=== PATIENT | female | born 1990 | race Caucasian/White ===

== ENCOUNTER 2018-12-26 07:46 | Day surgery (SDC) | payer BC ==
[~2018-12-26 07:46] MED LIST: EPINEPHrine 1 MG/ML SDV ONE; Lactated Ringers 1,000 ML IV SCH; Lidocaine 1%/Sod Bicarbonate in NS 8.4% 1 ML Syringe IDERM PRN; Ropivacaine 0.5% 5 MG/ML 30 ML SDV ONE; Sodium Chloride 0.9% 10 ML Syringe FLUSH PRN
[2018-12-26] MEDS ORDERED: Midazolam 1 MG/ML 2 ML SDV ONE (08:21)
[2018-12-26] MEDS ORDERED: Lidocaine 1% 2 ML ONE (08:21)
[2018-12-26] MEDS ORDERED: fentaNYL 100 MCG/2 ML SDV ONE (08:22)
--- NOTE | 2018-12-26 08:25 | PCM.PREANE ---
Preanesthetic Assessment - Anesthesia/Transfusion/Family Hx Anesthesia History: Prior Anesthesia Without Reaction Family History of Anesthesia Reaction: No - Review of Systems General: No Symptoms Pulmonary: No Symptoms Cardiovascular: No Symptoms Gastrointestinal: No Symptoms Neurological: No Symptoms Other: Reports: None - Physical Assessment NPO Status Date: 12/25/18 NPO Status Time: 20:30 Pulse: 68 O2 Sat by Pulse Oximetry: 100 Respiratory Rate: 16 Blood Pressure: 117/71 Temperature: 36.2 C Weight: 73.482 kg ASA Class: 1 Mental Status: Alert & Oriented x3 Airway Class: Mallampati = 1 Dentition: Reports: Normal Dentition Thyro-Mental Finger Breadths: 3 Mouth Opening Finger Breadths: 3 ROM/Head Extension: Full Lungs: Clear to Auscultation, Normal Respiratory Effort Cardiovascular: Regular Rate, Regular Rhythm - Lab Values: Laboratory Last Values MRSA (PCR) Negative 12/25/18 12:02 - Allergies Allergies/Adverse Reactions: Allergies Allergy/AdvReac Type Severity Reaction Status Date / Time penicillin V Allergy Hives Verified 12/25/18 14:53 shellfish derived Allergy Anaphylactic Verified 12/25/18 14:53 Shock - Acknowledgements Anesthesia Type Planned: General Anesthesia, Regional Block (Interscalene Nerve Block ) Pt an Appropriate Candidate for the Planned Anesthesia: Yes Alternatives and Risks of Anesthesia Discussed w Pt/Guardian: Yes Pt/Guardian Understands and Agrees with Anesthesia Plan: Yes PreAnesthesia Questionnaire HEENT History: Reports: Other (See Below) Other HEENT History: PHARYNGITIS, SORE THROAT, WEARS GLASSES Cardiovascular History: Reports: None Respiratory History: Reports: Other (See Below) Other Respiratory History: COUGH Gastrointestinal History: Reports: None Genitourinary History: Reports: None PROFESSOR OF CRIMINAL JUSTICE History: Reports: None Musculoskeletal History: Reports: None Neurological History: Reports: None Psychiatric History: Reports: None Endocrine/Metabolic History: Reports: None Hematologic History: Reports: None Immunologic History: Reports: None Oncologic (Cancer) History: Reports: None Dermatologic History: Reports: None - Past Surgical History Head Surgeries/Procedures: Reports: None Cardiovascular Surgical History: Reports: None Respiratory Surgical History: Reports: None GI Surgical History: Reports: None Female Surgical History: Reports: None Male Surgical History: Reports: None Endocrine Surgical History: Reports: None Neurological Surgical History: Reports: None Musculoskeletal Surgical History: Reports: Other (See Below) Other Musculoskeletal Surgeries/Procedures:: FOOT SURGERY, SHOULDER SURGERY Oncologic Surgical History: Reports: None Dermatological Surgical History: Reports: None - SUBSTANCE USE Recreational Drug Use History: No - HOME MEDS Home Medications: Home Meds Clobetasol Propionate [Temovate Cream] 1 dose TOP TID PRN 12/25/18 [History] EPINEPHrine [Epipen] 1 dose IM ASDIRECTED PRN 12/25/18 [History] medroxyPROGESTERone Acetate [Depo-Provera] 1 dose IM Q3M 12/25/18 [History] Acetaminophen/HYDROcodone [[place] 325-5 MG] 1 - 2 tab PO Q6H PRN #40 tablet 12/26 [Rx] Cyclobenzaprine [Flexeril] 10 mg PO Q8H PRN #40 tab 12/26/18 [Rx] - CURRENT (IN HOUSE) MEDS Current Meds: Current Medications Epinephrine HCl (Adrenalin) 3 mg .XX ONETIME ONE Stop: 12/26/18 09:01 Lactated Ringer's (Ringers, Lactated) 1,000 mls @ 125 mls/hr IV ASDIRECTED KEYON Stop: 12/26/18 18:00 Lidocaine/Sodium Bicarbonate (Buffered Lidocaine 1% In Ns 8.4%) 0.25 ml IDERM ONETIME PRN PRN Reason: Prior to IV Start Stop: 12/26/18 18:00 Sodium Chloride (Saline Flush) 10 ml FLUSH ASDIRECTED PRN PRN Reason: Keep Vein Open Stop: 12/26/18 18:00 Discontinued Medications Epinephrine HCl (Adrenalin) Confirm Administered Dose 1 mg .ROUTE .STK-MED ONE Stop: 12/26/18 07:32 Ropivacaine (Naropin 0.5%) Confirm Administered Dose 30 ml .ROUTE .STK-MED ONE Stop: 12/26/18 07:32
[2018-12-26] MEDS ORDERED: Bupivacaine 0.25% 30 ML SDV ONE (08:28)
[2018-12-26] MEDS ORDERED: Ondansetron 4 MG/2 ML SDV ONE (08:57)
[2018-12-26] MEDS ORDERED: Rocuronium 50 MG/5 ML Vial ONE (08:57)
[2018-12-26] MEDS ORDERED: Lidocaine 1% 4 ML ONE (08:58)
[2018-12-26] MEDS ORDERED: Propofol 200 MG/20 ML SDV ONE (08:58)
[2018-12-26] MEDS ORDERED: EPINEPHrine 1 MG/ML 30 ML MDV ONE (09:00)
[2018-12-26] MEDS ORDERED: ceFAZolin 1 GM Vial ONE (09:03)
--- NOTE | 2018-12-26 09:17 | PCM.SN ---
- Free Text/Narrative Note: Date: 12/26/18 Time out:826 Start time:826 End time:[address] left interscalene block with ultrasound guidance and nerve stimulator for post op pain control per Dr. Vazquez and patient. Preop diagnosis left shoulder pain. Procedure is left shoulder arthrosocpy Informed consent obtained. Monitors and O2 placed at 2 l per n/c. Versed 2 mg and Fentanyl 100 mcg given IV total. Patient awake and talking during procedure. Left neck and clavicle area prepped with chlorprep. Sterile gloves, hat and mask worn. US probe with sterile sleeve placed midclavicular with ID of brachial plexus and subclavian artery. Brachial plexus followed cephalad to level of cricoid. Lidocaine 1% local anesthetic injected prior to block placement. 22 g 2 inch stimplex needle advanced with US guidance to brachial plexus. Positive forearm response at .4mA with nerve stimulator. Ceased with saline injection. Ropivacaine 0.5% with epi 1:200,000 injected in increments of 5 ml with negative aspiration before each injection to a total of 30 ml. Good spread of local anesthetic seen on US. Patient tolerated procedure well. Vitals stable with no complaints. Wan Lefor LEAD NUCLEAR MEDICINE TECHNOLOGIST
[2018-12-26] MEDS ORDERED: Lactated Ringers 1,000 ML ONE (09:46)
[2018-12-26] MEDS ORDERED: fentaNYL 100 MCG/2 ML SDV IVPUSH PRN (11:34)
--- NOTE | 2018-12-26 11:38 | PCM.POSTAN ---
POST ANESTHESIA ASSESSMENT - MENTAL STATUS Mental Status: Alert, Oriented - VITAL SIGNS Pulse Rate: 92 SaO2: 97 Resp Rate: 12 Blood Pressure: 106/62 Temperature: 36.8 C - RESPIRATORY Respiratory Status: Respiratory Rate WNL, Airway Patent, O2 Saturation Stable, Supplemental Oxygen - CARDIOVASCULAR CV Status: Pulse Rate WNL, Blood Pressure Stable - GASTROINTESTINAL GI Status: No Symptoms - PAIN Pain Score: 0 - POST OP HYDRATION Hydration Status: Adequate & Stable - OBSERVATIONS Free Text/Narrative:: no anesthesia complications noted
[2018-12-26] MEDS ORDERED: Ketorolac 30 MG/ML SDV IVPUSH PRN (11:39)
--- NOTE | 2018-12-31 14:43 | PCM.OPNOTE ---
- General Post-Op/Procedure Note Date of Surgery/Procedure: 12/26/18 Operative Procedure(s): left shoulder vidoe arthroscopy with biceps tenodesis, anterior labral repair and extentensive debridement Pre Op Diagnosis: left shoulder SLAP tear Post-Op Diagnosis: same with anterior labral tear and extensive synovitis Anesthesia Technique: General ET Tube, Regional Block Primary Surgeon: Wellington Vazquez Anesthesia Provider: Wan Quinonez Cotton Washer: Jackelyn Modi EBSandy in mLs: 5 Complications: None Condition: Good
--- NOTE | 2018-12-31 15:24 | OR ---
DATE OF OPERATION: 12/26/2018 SURGEON: Wellington Vazquez MD OPERATIVE PROCEDURE: Left shoulder video arthroscopy with biceps tenodesis, anterior labral repair, and extensive debridement. PREOPERATIVE DIAGNOSIS: Left shoulder SLAP tear. POSTOPERATIVE DIAGNOSIS: Left shoulder SLAP tear with anterior labral tear and extensive synovitis. ANESTHESIA TECHNIQUE: General endotracheal intubation with regional interscalene block. ANESTHESIA PROVIDER: Shimon Couch. HIGH SCHOOL BUSINESS TEACHER: Jackelyn Modi PA-C. ESTIMATED BLOOD LOSS: 5 mL. COMPLICATIONS: None. CONDITION: Stable. DESCRIPTION OF PROCEDURE: The patient was identified in the preop holding area. Proper site was marked and identified by the surgeon. The patient was taken back to the operating theater, where after adequate anesthesia, the patient was placed in the right lateral decubitus position. A wedge was placed posteriorly. The patient was secured to the table. At this time, the left upper extremity was sterilely prepped and draped in usual sterile fashion. OR time-out was performed. The patient received appropriate antibiotics since she had a penicillin allergy. At this time, 12 pounds traction was applied to left upper extremity. A standard posterior incision was then made. Scope trocar was introduced to glenohumeral joint. The patient was noted to have significant scar tissue. The previous sutures were noted to be scarred into the anterior capsule. The complete anterior labrum was peeled back. The patient did have a small area grade 2 chondromalacia of the glenoid. There was no chondromalacia of the humeral head. The patient had signs of possible previous Hill-Sachs type lesion on the posterior aspect of the humerus, but there was no engaging Hill-Sachs. Undersurface of the rotator cuff was otherwise intact. The patient did have severe synovitis noted at the bicipital groove and did have significant type 2 SLAP tear of the superior labrum. At this time, an anterior portal was created for outside-in technique. Significant synovectomy was then performed with an extensive debridement including of the anterior synovitis. At this time, it was decided that the anterior portion of the SLAP tear as well as the anterior labrum was going to be need to be secured as it did show significant instability and peel back. First, biceps tenodesis performed. A spinal needle was used for passage of a #2 FiberWire through the rotator interval, and then a tenotomy was performed at the superior labrum. At this time, two 2.9 mm Arthrex PushLock anchors were then placed to secure the anterior labrum both the mid portion of the glenoid as well as near the superior border, near the superior labrum. At this time, she was found to have adequate confucianist of the bumper effect of the anterior labrum as well as no instability noted at anterior or the superior labrum. At this time, attention was turned to the subacromial space. The patient was noted to have significant amount of scar tissue noted from previous arthroscopies in the subacromial space. A significant synovectomy and bursectomy were then performed in the subacromial space. Rotator cuff was otherwise intact and there was no signs of rotator cuff tear. The limbs of the suture for the biceps tenodesis were identified in the rotator interval and these were tied in the rotator interval for soft tissue tenodesis. There was no other pathology. Adequate saline was irrigated through the wound. A 3-0 nylon suture was used for closure of the portal incisions. The patient was placed in a sterile soft dressing, a pillow sling, and sent to PACU in stable condition. OPERATION PERFORMED: ANESTHESIA: [facility] /[id number]
== END 2018-12-26 13:00 | disposition home or self-care (01) ==
LOC: JD.SDS 07:46
PROVIDERS: ATTEND Orthopaedic Surgery
DX: S43.432A Superior glenoid labrum lesion of left shoulder, initial encounter (principal); M65.812 Other synovitis and tenosynovitis, left shoulder; G89.18 Other acute postprocedural pain; M94.212 Chondromalacia, left shoulder; X58.XXXA Exposure to other specified factors, initial encounter; Z88.0 Allergy status to penicillin; Z91.013 Allergy to seafood; Z79.899 Other long term (current) drug therapy
CPT/HCPCS: 29806; 29828; 64415; 81025; 87641; C1713; J0171; J0690; J1885; J2001; J2250; J2405; J2704; J2795; J3010; J7120; 01630; J3490

== ENCOUNTER 2021-10-24 16:12 | Inpatient (IN) | payer BC ==
[~2021-10-24 16:12] MED LIST changes: +Bupivacaine 0.25% 10 ML SDV ONE; -EPINEPHrine 1 MG/ML SDV ONE; -Lactated Ringers 1,000 ML IV SCH; -Lidocaine 1%/Sod Bicarbonate in NS 8.4% 1 ML Syringe IDERM PRN; -Ropivacaine 0.5% 5 MG/ML 30 ML SDV ONE; -Sodium Chloride 0.9% 10 ML Syringe FLUSH PRN
[2021-10-24] MEDS ORDERED: Sodium Chloride 0.9% 10 ML Syringe FLUSH PRN (18:45)
[2021-10-24] MEDS ORDERED: Acetaminophen 325 MG Tab PO PRN (18:45)
[2021-10-24] MEDS ORDERED: Nalbuphine 10 MG/1 ML Vial IVPUSH PRN (18:45)
[2021-10-24] MEDS ORDERED: Oxytocin/Lactated Ringers 10 UNIT/1,000 ML BAG IV SCH ×2 (18:45→22:45)
[2021-10-24] MEDS ORDERED: ceFAZolin 2 GM in Sodium Chloride 0.9% 50 ML IV ONE (18:45)
[2021-10-24] MEDS: Lactated Ringers 1,000 ML IV SCH ×2 (19:17→21:06)
[2021-10-24] MEDS ORDERED: fentaNYL 100 MCG/2 ML SDV EPIDUR PRN (19:50)
[2021-10-24] MEDS ORDERED: Bupivacaine/fentaNYL/NS 100 ML Bag EPIDUR PRN (19:50)
[2021-10-24] MEDS ORDERED: ePHEDrine 50 MG/ML SDV IVPUSH PRN (19:50)
[2021-10-24] MEDS ORDERED: diphenhydrAMINE 50 MG/ML SDV IVPUSH PRN (19:50)
[2021-10-24] MEDS ORDERED: Sodium Chloride 0.9% 10 ML Syringe FLUSH SCH (21:00)
[2021-10-24] MEDS ORDERED: ceFAZolin 1 GM in Sodium Chloride 0.9% 100 ML IV SCH (23:30)
[2021-10-25] MEDS ORDERED: ceFAZolin 1 GM in Sodium Chloride 0.9% 100 ML IV SCH ×2 (02:00→03:00)
[2021-10-25] MEDS ORDERED: Ondansetron 4 MG/2 ML SDV IVPUSH ONE (02:39)
[2021-10-25] MEDS ORDERED: Benzocaine/Menthol 20%-0.5% Spray 78 GM Cannister TOP PRN (06:36)
[2021-10-25] MEDS ORDERED: Oxytocin/Lactated Ringers 10 UNIT/1,000 ML BAG IV SCH (06:36)
[2021-10-25] MEDS ORDERED: Acetaminophen 325 MG Tab PO PRN (06:36)
[2021-10-25] MEDS ORDERED: Hydrocortisone Acetate 25 MG Supp RECTAL PRN (06:36)
[2021-10-25] MEDS: Witch Hazel Medicated Pads 40/Jar TOP PRN (07:25)
[2021-10-25] MEDS: Prenatal Multivitamin with Calcium/Folic Acid/Iron Tab PO SCH (09:07)
[2021-10-25] MEDS: Ibuprofen 600 MG Tab PO PRN ×2 (09:07→15:57)
[2021-10-26] MEDS: Ibuprofen 600 MG Tab PO PRN ×2 (07:56→19:47)
[2021-10-26] MEDS: Prenatal Multivitamin with Calcium/Folic Acid/Iron Tab PO SCH (07:59)
[2021-10-26] MEDS: Witch Hazel Medicated Pads 40/Jar TOP PRN (09:33)
[2021-10-26] MEDS ORDERED: Docusate Sodium 100 MG Cap PO PRN (19:47)
[2021-10-26] MEDS ORDERED: Docusate Sodium 100 MG Cap PO SCH (21:00)
[2021-10-27] MEDS: Prenatal Multivitamin with Calcium/Folic Acid/Iron Tab PO SCH (10:44)
== END 2021-10-27 10:35 | disposition home or self-care (01) | DRG 560 ==
LOC: JD.OB 16:12 → OBSVTOIN 18:41 → JD.OB 18:41
PROVIDERS: ADMIT Obstetrics & Gynecology; ATTEND Obstetrics & Gynecology
PROC: 10E0XZZ Delivery of Products of Conception, External Approach (ICD-10-PCS; principal; 2021-10-24)
PROC: 0KQM0ZZ Repair Perineum Muscle, Open Approach (ICD-10-PCS; 2021-10-24)
PROC: 3E0R3BZ Introduction of Anesthetic Agent into Spinal Canal, Percutaneous Approach (ICD-10-PCS; 2021-10-24)
PROC: 10907ZC Drainage of Amniotic Fluid, Therapeutic from Products of Conception, Via Natural or Artificial Opening (ICD-10-PCS; 2021-10-24)
DX: O99.824 Streptococcus B carrier state complicating childbirth (principal); Z3A.40 40 weeks gestation of pregnancy; Z37.0 Single live birth; O77.0 Labor and delivery complicated by meconium in amniotic fluid; O48.0 Post-term pregnancy
CPT/HCPCS: 01967; 36415; 51701; 51702; 59025; 59409; 84112; 85025; 86592; A9270-GY; J0690; J2300; J2405; J2590; J3010; J3490; J7120

== ENCOUNTER 2022-08-21 13:59 | Emergency (ER) | payer BC | END 2022-08-21 17:10 | disposition home or self-care (01) | LOC: JD.ED 13:59 | DX: O22.23 Superficial thrombophlebitis in pregnancy, third trimester (principal); I80.02 Phlebitis and thrombophlebitis of superficial vessels of left lower extremity; Z88.0 Allergy status to penicillin; Z91.013 Allergy to seafood; Z86.16 Personal history of COVID-19; Z3A.34 34 weeks gestation of pregnancy | CPT/HCPCS: 93971-26-LT; 93971-LT; 99283 ==

== ENCOUNTER 2022-09-23 07:04 | Inpatient (IN) | payer BC ==
[2022-09-23] MEDS ORDERED: Nalbuphine 10 MG/0.5 ML Syringe IVPUSH PRN (07:12)
[2022-09-23] MEDS ORDERED: Sodium Chloride 0.9% 10 ML Syringe FLUSH PRN (07:12)
[2022-09-23] MEDS ORDERED: ceFAZolin 2 GM in Sodium Chloride 0.9% 50 ML IV ONE ×2 (07:12→08:15)
[2022-09-23] MEDS ORDERED: Ondansetron 4 MG/2 ML SDV IVPUSH PRN (07:12)
[2022-09-23] MEDS ORDERED: Oxytocin/Lactated Ringers 10 UNIT/1,000 ML BAG IV SCH ×2 (07:15→10:15)
[2022-09-23] MEDS ORDERED: ceFAZolin 2 GM Vial ONE (08:20)
[2022-09-23] MEDS: Lactated Ringers 1,000 ML IV SCH ×3 (08:30→13:36)
[2022-09-23] MEDS ORDERED: Sodium Chloride 0.9% 10 ML Syringe FLUSH SCH (09:00)
[2022-09-23] MEDS ORDERED: Bupivacaine/fentaNYL/NS 100 ML Bag EPIDUR PRN (12:47)
[2022-09-23] MEDS ORDERED: fentaNYL 100 MCG/2 ML SDV EPIDUR PRN (12:47)
[2022-09-23] MEDS ORDERED: diphenhydrAMINE 50 MG/ML SDV IVPUSH PRN (12:47)
[2022-09-23] MEDS ORDERED: ePHEDrine 50 MG/ML SDV IVPUSH PRN (12:47)
[2022-09-23] MEDS ORDERED: ceFAZolin 1 GM in Sodium Chloride 0.9% 100 ML IV SCH (15:00)
[2022-09-23] MEDS ORDERED: Bupivacaine 0.25% 10 ML SDV ONE (18:00)
[2022-09-23] MEDS ORDERED: Acetaminophen 325 MG Tab PO PRN (20:05)
[2022-09-23] MEDS ORDERED: Witch Hazel Medicated Pads 40/Jar TOP PRN (20:05)
[2022-09-23] MEDS ORDERED: Docusate Sodium 100 MG Cap PO PRN (20:05)
[2022-09-23] MEDS ORDERED: Benzocaine/Menthol 20%-0.5% Spray 78 GM Cannister TOP PRN (20:05)
[2022-09-23] MEDS ORDERED: Ibuprofen 600 MG Tab PO PRN (20:05)
== END 2022-09-24 17:50 | disposition home or self-care (01) | DRG 560 ==
LOC: JD.OBCHECK 07:04 → JD.OB 07:06 → JD.OBCHECK 07:12 → JD.OB 07:13 → OBSVTOIN 16:49 → JD.OB 16:50
PROVIDERS: ADMIT Obstetrics & Gynecology; ATTEND Obstetrics & Gynecology
PROC: 10E0XZZ Delivery of Products of Conception, External Approach (ICD-10-PCS; principal; 2022-09-23)
PROC: 10907ZC Drainage of Amniotic Fluid, Therapeutic from Products of Conception, Via Natural or Artificial Opening (ICD-10-PCS; 2022-09-23)
PROC: 3E0R3BZ Introduction of Anesthetic Agent into Spinal Canal, Percutaneous Approach (ICD-10-PCS; 2022-09-23)
PROC: 00HU33Z Insertion of Infusion Device into Spinal Canal, Percutaneous Approach (ICD-10-PCS; 2022-09-23)
DX: O99.824 Streptococcus B carrier state complicating childbirth (principal); Z3A.39 39 weeks gestation of pregnancy; Z37.0 Single live birth; O99.62 Diseases of the digestive system complicating childbirth; K21.9 Gastro-esophageal reflux disease without esophagitis; Z88.0 Allergy status to penicillin; Z86.16 Personal history of COVID-19; Z91.013 Allergy to seafood
CPT/HCPCS: 36415; 51703; 59025; 59409; 85027; 86592; 86850; 86900; 86901; A9270-GY; J0690; J2405; J2590; J3010; J3490; J7120